=== PATIENT | male | born 1990 | race Caucasian/White ===

== ENCOUNTER 2021-03-05 10:23 | Emergency (ER) | payer OTHER ==
[~2021-03-05] VITALS: Ht 162.6 cm; Wt 65.9 kg
[2021-03-05 13:00] VITALS: BP 119/76
== END 2021-03-05 13:05 | disposition home or self-care (01) | DRG 125 ==
LOC: ED 10:23
DX: H10.13 Acute atopic conjunctivitis, bilateral (principal); J30.9 Allergic rhinitis, unspecified; Z20.822 Contact with and (suspected) exposure to COVID-19